=== PATIENT | female | born 2000 | race Caucasian/White ===

== ENCOUNTER 2019-03-12 14:43 | Emergency (ER) | payer SELFPAY ==
[~2019-03-12] VITALS: Ht 158.1 cm; Wt 55.8 kg
[2019-03-12 14:46] VITALS: BP 128/84
--- NOTE | 2019-03-12 14:58 | NUR ---
BIB MOTHER. C/O STYE RIGHT UPPER EYELID X 6 DAYS. PT STATES PAIN 5/10 WHEN BLINKING. PT DENIES FEVER, VISION CHANGES, DIZZINESS, N/V. PT TX STYE LUBRICATION THIS AM WITH NO RELIEF. PT AMBULATED WITH STEADY GAIT. PMH:DENIES MED RX:DENIES ALLERGY:DENIES
[2019-03-12] MEDS ORDERED: LIDOCAINE/EPI 1% 1:100000 20 ML VIAL INJ ONE (15:10)
--- NOTE | 2019-03-12 15:30 | NUR ---
ER MD PERFORMING BEDSIDE PROCEDURE AT THIS TIME.
--- NOTE | 2019-03-12 15:58 | NUR ---
Patient discharged with v/s stable. Written and verbal after care instructions given and explained. Patient alert, oriented and verbalized understanding of instructions. Ambulatory with to home. All questions addressed prior to discharge. ID band removed. Patient advised to follow up with PMD. Rx of NAPROSYN 500 MG, KEFLEX 500MG given. Patient educated on indication of medication including possible reaction and side effects. Opportunity to ask questions provided and answered. D/C BY DR VALDEZ
[2019-03-12 16:00] VITALS: BP 128/84
== END 2019-03-12 15:58 | disposition home or self-care (01) ==
LOC: MED 14:43
DX: H00.011 Hordeolum externum right upper eyelid (principal)
CPT/HCPCS: 67700; 99284; J2001